=== PATIENT | female | born 1950 | race Caucasian/White ===

== ENCOUNTER → 2021-06-09 07:40 | Outpatient (CLI) | payer MEDICARE, BC, SELFPAY ==
[2021-06-09] VITALS (8 sets, daily range): BP systolic 108–122; BP diastolic 66–76; PULSE 70–86; RESP 16; O2SAT 95–98
== END ==
DX: U07.1 COVID-19 (principal); Z23 Encounter for immunization
CPT/HCPCS: 96365

== ENCOUNTER 2023-04-10 12:29 | Emergency (ER) | payer MEDICARE, BC, SELFPAY ==
[2023-04-10 13:00] VITALS: BP 132/91; PULSE 81; RESP 18; TEMP 36.7; O2SAT 99; BMI 27.2
[2023-04-10 13:11] VITALS: BP 132/91; PULSE 81; RESP 18; TEMP 36.7; O2SAT 99
--- NOTE | 2023-04-10 13:12 | EXP.UTC ---
Discharge Plan Disposition Patient Disposition: Home, Self-Care Condition: Good Prescriptions Prescriptions: New ondansetron 4 mg tablet,disintegrating 4 mg PO Q8H PRN (Reason: nausea and vomiting) Qty: 10 0RF No Action aspirin 81 mg tablet,delayed release (DR/EC) 81 mg PO DAILY chlorthalidone 25 mg tablet 25 mg PO DAILY escitalopram oxalate 10 mg tablet 10 mg PO DAILY esomeprazole magnesium 40 mg capsule,delayed release(DR/EC) 40 mg PO DAILY estradiol-norethindrone acet 0.5-0.1 mg tablet 1 tab PO DAILY gabapentin 300 mg capsule 300 mg PO TID levothyroxine 88 mcg capsule 88 mcg PO DAILY meloxicam 15 mg tablet 15 mg PO DAILY cholecalciferol (vitamin D3) 25 mcg (1,000 unit) capsule 25 mcg PO DAILY potassium chloride 20 mEq tablet,ER particles/crystals 20 meq PO DAILY simvastatin 40 mg tablet 40 mg PO DAILY tizanidine [Zanaflex] 4 mg capsule 4 mg PO TID PRN amoxicillin-pot clavulanate 875-125 mg tablet 1 tab PO Q12H 10 Days Qty: 20 0RF fluconazole 150 mg tablet 150 mg PO Q3D 0 Days Qty: 2 0RF Rx Instructions: may repeat second dose 72 hrs after first dose if symptoms persist Referrals Follow up/Referrals: Paige Nowak APRN [Primary Care Provider] - See instructions Activity Restrictions/Add. Instructions Additional Instructions/Restrictions: Drink extra fluids with and between meals. If you have difficulty drinking, try very small amounts of water or suck on ice chips. ? Avoid fruit juices, as these do not replace minerals and can actually increase diarrhea. ? Children and adults can use sports drinks to replenish electrolytes. Younger children and infants should use products formulated for children, like oral rehydration solutions like Pedialyte ? Eat food in small amounts and let your stomach recover. ? Get lots of rest. You may feel tired or weak. ? No greasy or fried foods for the next 24-48 hours BRAT diet Bananas Rice Apples and [place] ? Make sure to drink plenty of liquids ? Return if needed ? Straight to ER if any life threatening symptoms ? Zofran as prescribed ? You was given an outpatient order for diarrhea panel, please collect specimen and bring back to outpatient lab then call back to the [facility] or follow up with family doctor for results ? Follow up with family doctor in the next 48-72 hours if no improvement or any worsening of symptoms Clinical Impressions Clinical Impression: Nausea vomiting and diarrhea Instructions Patient Instructions: Diarrhea, Nausea and Vomiting-Adult Discharge ED Provider[place]feoma [place] [facility] [place] General Stated complaint: stomach pain, vomiting, diarrhea Mode of Arrival: Ambulatory Source of Information: Patient Limitations: No Limitations Time Seen by Provider: 04/10/23 13:12 Description of Symptoms (Recalled from Triage Doc. by RN): PATIENT C/O VOMITING AND DIARRHEA SINCE SATURDAY HEENT Symptoms (Recalled from RN notes): No Resp Symptoms (Recalled from RN notes): No Skin Symptoms (Recalled from RN notes): No MS Symptoms (Recalled from RN notes): No Functional Status (Recalled from RN notes): WNL History of Present Illness Provider Complaint: Patient state that on Saturday she was having N/V States that Saturday her vomiting slowed down but she was still having some nausea and vomiting when she would eat or drink something and today she is having a little diarrhea on and off States that her stomach feels upset and valdez at times right before she vomits States that she has been trying to eat small amounts and drink fluids but it makes her nausea worse Related Data Home Medications Medication Instructions Recorded Confirmed aspirin 81 mg tablet,delayed 81 mg PO DAILY 03/07/21 03/07/21 release chlorthalidone 25 mg tablet 25 mg PO DAILY 03/07/21 03/07/21 cholecalc
== END 2023-04-10 13:47 | disposition home or self-care (01) ==
PROVIDERS: Emergency Provider Nurse Practitioner; PCP Nurse Practitioner Family
DX: R11.2 Nausea with vomiting, unspecified (principal); R19.7 Diarrhea, unspecified
CPT/HCPCS: 99204; 99212; G0463

== ENCOUNTER 2023-08-18 17:10 | Emergency (ER) | payer MEDICARE, BC, SELFPAY ==
[2023-08-18 17:50] VITALS: BP 126/72; PULSE 60; RESP 18; TEMP 36.6; O2SAT 96; BMI 29.1
--- NOTE | 2023-08-18 17:54 | ED_ITS ---
Discharge Plan Disposition Patient Disposition: Home, Self-Care Condition: Good Prescriptions Prescriptions: New amoxicillin 875 mg tablet 875 mg PO Q12H Qty: 20 0RF No Action levothyroxine 75 mcg tablet 75 mcg PO DAILY escitalopram oxalate 5 mg tablet 5 mg PO DAILY propranolol 20 mg tablet 20 mg PO ONCE spironolactone 50 mg tablet 50 mg PO DAILY Vit 3 500 mg-500 mcg -1 mg-12.5 mg capsule PO fluticasone propionate [Allergy Relief (fluticasone)] 50 mcg/actuation spray,suspension 1 spray intranasal DAILY Qty: 16 2RF Rx Instructions: administer into each nostril azithromycin [Zithromax Z-Freddy] 250 mg tablet See Rx Instructions PO .COMPLEX Qty: 6 0RF Rx Instructions: For 250 mg dose pack: take 500 mg today (day 1), then 250 mg for 4 days (days 2-5) PO aspirin 81 mg tablet,delayed release (DR/EC) 81 mg PO DAILY esomeprazole magnesium 40 mg capsule,delayed release(DR/EC) 40 mg PO DAILY estradiol-norethindrone acet 0.5-0.1 mg tablet 1 tab PO DAILY gabapentin 300 mg capsule 300 mg PO TID cholecalciferol (vitamin D3) 25 mcg (1,000 unit) capsule 25 mcg PO DAILY simvastatin 40 mg tablet 40 mg PO DAILY Referrals Follow up/Referrals: Paige Nowak APRN [Primary Care Provider] - See instructions Activity Restrictions/Add. Instructions Additional Instructions/Restrictions: Take the medications as directed. Follow up with your regular doctor. Follow up with your dentist. Call them in the morning to get a follow up appointment there. GO TO THE ER FOR ANY WORSENING SYMPTOMS Clinical Impressions Clinical Impression: Pain, dental, Abscess, dental Instructions Patient Instructions: DI for Dental Pain, Tooth Abscess Discharge ED Provider: Robinson Sheehan [facility] General Stated complaint: nausea, ear ache Time Seen by Provider: 08/18/23 17:54 History of Present Illness Provider Complaint: She states that she has had right lower jaw pain from a decayed tooth for the past 2 days. She took a tylenol #3 (this morning) that was prescribed by her dentist and she had nausea/vomiting since then. She denies any fever/chills. Related Data Home Medications Medication Instructions Recorded Confirmed aspirin 81 mg tablet,delayed 81 mg PO DAILY 03/07/21 05/10/23 release cholecalciferol (vitamin D3) 25 25 mcg PO DAILY 03/07/21 05/10/23 mcg (1,000 unit) capsule esomeprazole magnesium 40 mg 40 mg PO DAILY 03/07/21 05/10/23 capsule,delayed release estradiol-norethindrone acet 0.5 1 tab PO DAILY 03/07/21 05/10/23 mg-0.1 mg tablet gabapentin 300 mg capsule 300 mg PO TID 03/07/21 05/10/23 simvastatin 40 mg tablet 40 mg PO DAILY 03/07/21 05/10/23 escitalopram oxalate 5 mg tablet 5 mg PO DAILY 05/10/23 05/10/23 levothyroxine 75 mcg tablet 75 mcg PO DAILY 05/10/23 05/10/23 omega 3 500 [id number] 500 cap PO 05/10/23 05/10/23 mcg-FA 1 mg-B6 12.5 mg-phytosterol cap (Vit 3) propranolol 20 mg tablet 20 mg PO ONCE 05/10/23 05/10/23 spironolactone 50 mg tablet 50 mg PO DAILY 05/10/23 05/10/23 Previous Rx's Medication Instructions Recorded azithromycin 250 mg tablet See Rx Instructions PO .COMPLEX #6 05/10/23 (Zithromax Z-Freddy) tabs fluticasone propionate 50 1 spray intranasal DAILY #16 grams 05/10/23 mcg/actuation nasal spray,suspension (Allergy Relief (fluticasone)) amoxicillin 875 mg tablet 875 mg PO Q12H #20 tabs 08/18/23 Allergies Allergy/AdvReac Type Severity Reaction Status Date / Time amlodipine AdvReac Verified 08/18/23 18:08 tetracycline AdvReac Verified 08/18/23 18:08 tramadol AdvReac Verified 08/18/23 18:08 [facility] Disclaimer: The information contained in this section may have been updated after the patient was seen, as this information can be updated by other users. Medical History Anxiety and depression GERD (gastroesophageal reflux disease) Hyperlipidemia Hypertension Vitamin D deficiency Surgical History H/O discectomy History of cholecystectomy Hx of appendectomy Family History Other No significant family history Social History Smoking Status: Never smoker alcohol intake: never current occupational status: retired Travel in the last 8 weeks: None ROS Obtained: Yes All systems reviewed & no additional complaints except as documented Constitutional Constitutional: Denies chills and Denies fever(s) Eyes Eyes: Denies eye discharge ENT Ears, Nose, Mouth, and Throat: Reports as per HPI, Denies dizziness, Denies otalgia and Denies sore throat Cardiovascular Cardiovascular: Denies chest pain Respiratory Respiratory: Denies shortness of breath, Denies chest congestion, Denies cough, Denies stridor and Denies wheezing Gastrointestinal Gastrointestingal: Denies nausea or vomiting Musculoskeletal Musculoskeletal: Reports system reviewed and no additional complaints, except as documented and Denies arthralgias Integumentary/Breasts Skin/Breast: Denies rash Neurologic Neurologic: Denies dizziness and Denies paresthesias Allergic/Immunologic Allergic/Immunologic: Denies wheezing Physical Exam General General appearance: alert and in no apparent distress Head Head exam: atraumatic, normocephalic and normal inspection Eye Eye exam: Present normal appearance, PERRL and EOMI ENT ENT exam: Present mucous membranes moist, TM's normal bilaterally and normal external ear exam Expanded ENT Exam Nose exam: Absent sinus tenderness Nasal speculum exam: Bilateral: normal Mouth exam: Present normal external inspection; Absent drooling Teeth exam: Present dental caries, dental tenderness # and gingival swelling Throat exam: Present normal inspection Neck Neck exam: Present normal inspection, full ROM and trachea midline; Absent meningismus or lymphadenopathy Chest Chest inspection: Present normal inspection and symmetric chest wall rise; Absent tenderness Respiratory Respiratory exam: Present normal lung sounds bilaterally; Absent respiratory distress Cardiovascular Cardiovascular exam: Present regular rate and normal rhythm; Absent JVD Abdominal Exam Abdominal exam: Present soft and normal bowel sounds; Absent distention, tenderness or guarding Extremities Exam Extremities exam: Present normal inspection, full ROM and normal capillary refill; Absent calf tenderness Back Exam Back exam: Present normal inspection; Absent tenderness Neurological Exam Neurological exam: Present alert and oriented X3 Psychiatric Psychiatric exam: Present normal affect and normal mood Skin Skin exam: Present warm, dry, intact and normal color Lymphatic Lymphatic Findings: no adenopathy Medical Decision Making Medical Records Medical records reviewed: No I reviewed the patient's medical records. Víctor Inquiry Pt receiving controlled substance: No Lab Data Lab results reviewed: Yes I reviewed the patient's lab results.
[2023-08-18] MEDS: cefTRIAXone 1GM VIAL 1 GM IM (18:30)
[2023-08-18] MEDS: LIDOCAINE 1% 5ML PF VIAL IM (18:30)
[2023-08-18 18:50] VITALS: BP 136/94; PULSE 76; RESP 18; TEMP 36.6; O2SAT 98
== END 2023-08-18 18:50 | disposition home or self-care (01) ==
PROVIDERS: Emergency Provider Nurse Practitioner Family; PCP Nurse Practitioner Family
DX: R68.84 Jaw pain (principal); R11.2 Nausea with vomiting, unspecified; F41.9 Anxiety disorder, unspecified; F32.A Depression, unspecified; K21.9 Gastro-esophageal reflux disease without esophagitis; I10 Essential (primary) hypertension; E78.5 Hyperlipidemia, unspecified
CPT/HCPCS: 96372; 99212; 99214; G0463; J0696

== ENCOUNTER 2023-11-05 13:48 | Outpatient (CLI) | payer MEDICARE, BC, SELFPAY ==
--- NOTE | 2023-11-05 13:57 | MM_ITS ---
PROCEDURE INFORMATION: Exam: MG Bilateral Screening 3D Mammography Exam date and time: 11/05/2023 1:47 PM Age: 73 years old Clinical indication: Screening. No family history of breast cancer. TECHNIQUE: Imaging protocol: Bilateral Screening tomosynthesis and 2D mammography including computer-aided detection (CAD) when performed. COMPARISON: 1. MG SCREEN MAMMO W CAD BILAT 01/22/2022 7:33 AM 2. MG Screening-Bilateral Mammography 12/13/2020 4:27 PM 3. MG Screening-Bilateral Mammography 12/02/2019 10:58 AM 4. MG MAMMO ADDITIONAL VIEWS RT 11/21/2018 8:24 AM FINDINGS: MAMMOGRAPHY: Breast composition: There are scattered areas of fibroglandular density. Mass: Questionable 0.5 cm oval mass/circumscribed asymmetry in the upper left breast 13-14 cm from the nipple, not seen in the CC or XCCL projections, may be intramammary lymph node. Architectural distortion: None. Calcifications: No suspicious calcifications. Asymmetric density: None. Skin thickening: None. Axillary adenopathy: None. IMPRESSION: Patient will be recalled for left diagnostic spot compression in the MLO and XCCL and left sonography for further evaluation of questionable left breast mass. ASSESSMENT: BI-RADS Category 0: Incomplete: Need Additional Imaging Evaluation and/or Prior Mammograms for Comparison
== END 2023-11-05 23:59 | disposition home or self-care (01) ==
LOC: RAD 13:49
PROVIDERS: PCP Nurse Practitioner Family; Visit Provider Nurse Practitioner Family
DX: Z12.31 Encounter for screening mammogram for malignant neoplasm of breast (principal)
CPT/HCPCS: 77063; 77067